=== PATIENT | female | born 1945 | race Caucasian/White ===

== ENCOUNTER 2016-06-09 15:19 | Emergency (ER) | payer MEDICARE ==
[2016-06-09] MEDS ORDERED: Morphine INJ* 10 MG/ML 1 ML CARPUJECT IM ONE (16:25)
[2016-06-09] MEDS ORDERED: Ondansetron ODT TAB* 4 MG PO ONE (17:03)
--- NOTE | 2016-06-09 17:03 | RAD ---
INDICATION: Traumatic fracture right wrist COMPARISON: None TECHNIQUE: AP, lateral, and oblique views were obtained. FINDINGS: There is a comminuted, impacted and angulated fracture of the distal radius. There is also fracture from the ulnar styloid. The soft tissue swelling with deformity. IMPRESSION: INTRA-ARTICULAR DISTAL RADIAL FRACTURE WITH ANGULATION. ULNAR SOLID FRACTURE.
[2016-06-09] MEDS ORDERED: Ondansetron INJ* 2 MG/ML VIAL ONE (17:04)
--- NOTE | 2016-06-09 18:16 | RAD ---
INDICATION: Closed [id number]. Traumatic fracture right wrist COMPARISON: Right wrist same date TECHNIQUE: 2 views were obtained. FINDINGS: There is closed reduction with improved positioning and alignment of the distal radial fracture fragments. An ulnar styloid fracture is again noted. IMPRESSION: INTERVAL CLOSED REDUCTION.
[2016-06-09 18:43] VITALS: BP 132/72
--- NOTE | 2016-06-09 21:30 | ED ---
Scarlett Paniagua Adam, scribed for Eladio Sofia MD on 06/09/16 at 1644 . Upper Extremity Pain - HPI Summary HPI Summary: A 71 y/o female presents to the ED c/o right forearm/wrist pain after falling from a height of 3 feet while standing on a couch. She denies any numbness. PMHx and FHx are negative. - History of Current Complaint Chief Complaint: EDExtremityUpper Stated Complaint: FALL/WRIST AND ARM INJURY Time Seen by Provider: 06/09/16 16:25 Hx Obtained From: Patient Mechanism Of Injury: Fall From Height Of: - 3 feet. Standing on couch. Onset/Duration: Started Hours Ago - 15:30 Timing: Constant Severity Initially: Moderate Severity Currently: Moderate Pain Location: Forearm - Right, Wrist - Right Aggravating Factor(s): Movement Alleviating Factor(s): Nothing Associated Signs & Symptoms: Positive: Swelling. Negative: Numbness/Tingling - Allergies/Home Medications Allergies/Adverse Reactions: Allergies Allergy/AdvReac Type Severity Reaction Status Date / Time Meperidine [From Demerol HCl] Allergy Unknown Unknown Verified 05/09/13 11:24 Reaction Details PMH/Surg Hx/FS Hx/Imm Hx Endocrine/Hematology History: Denies: Hx Diabetes Cardiovascular History: Denies: Hx Hypertension Musculoskeletal History: Denies: Hx Osteoporosis - Cancer History Hx Chemotherapy: No Hx Radiation Therapy: No Infectious Disease History: No Infectious Disease History: Denies: Traveled Outside the [place] in Last 30 Days - Family History Known Family History: Negative: Cardiac Disease, Hypertension, Diabetes - Social History Alcohol Use: Rare Substance Use Type: Reports: None Smoking Status (MU): Never Smoked Tobacco Review of Systems Constitutional: Negative Negative: Fever Eyes: Negative ENT: Negative Cardiovascular: Negative Respiratory: Negative Gastrointestinal: Negative Genitourinary: Negative Positive: Arthralgia - Right wrist and distal forearm, Decreased ROM - D/T pain , Edema - Right wrist and forearm Skin: Negative Neurological: Negative Psychological: Normal All Other Systems Reviewed And Are Negative: Yes Physical Exam - Summary Physical Exam Summary: General: Comfortable, pleasant, alert HEENT: Moist mucosa Neck: soft, supple, no adenopathy, no edema, no c-spine tenderness Heart: S1, S2, RRR, no murmurs, rubs, or gallops Lungs: Clear to auscultation, breathing comfortable, no wheezes or rales Abdominal: Soft, flat, nontender Extremities: No edema, no calf tenderness, Motions and strength of the right hand intact but limited due to pain, sensation of hand intact, obvious deformity of right distal radius Neuro: Alert and oriented x 3 Psych: Logical, coherent Vital Signs On Initial Exam: Initial Vitals Temp Pulse Resp BP Pulse Ox 98.8 F 87 20 154/101 98 06/09/16 15:25 06/09/16 15:25 06/09/16 15:25 06/09/16 15:25 06/09/16 15:25 - Lety Coma Scale Coma Scale Total: 15 Procedures - Procedure Summary Procedure Summary: Hematoma block of the right distal radius. Sterile technique used. 6 cc Marcaine. Betadine prep x 3. Radius fracture reduction and splintin-10 pounds traction placed for 10 minutes. Distal radius reduced. Orthoglass sugar tong splint placed. Diagnostics - Vital Signs Vital Signs Temp Pulse Resp BP Pulse Ox 06/09/16 15:25 98.8 F 87 20 154/101 98 - Laboratory Lab Statement: Any lab studies that have been ordered have been reviewed, and results considered in the medical decision making process. - Radiology Right wrist xray Xray Interpretation: Positive (See Comments) - INTRA-ARTICULAR DISTAL RADIAL FRACTURE WITH ANGULATION. ULNAR SOLID FRACTURE. Radiology Interpretation Completed By: Radiologist Right wrist xray 2 Xray Interpretation: Positive (See Comments) - Interval closed redution Radiology Interpretation Completed By: Radiologist Course/Dx - Course Assessment/Plan: Simple mechanical fall. Distal radius fx with signifcant impaction and angulation. Successfully reduced with hematoma block and she is much improved. Pain is improved. Splinted. She will return for increaseing pain or signs of poor perfusion. Otherwise f/u with ortho for additional treatment. Warnings given as far as sedative properties and how to avoid compliations. - Diagnoses Differential Diagnosis/HQI/PQRI: Positive: Contusion, Fracture (Open), Hematoma , Osteomyelitis, Septic Arthritis, Strain, Sprain Provider Diagnoses: Distal radius fracture, right Discharge - Discharge Plan Condition: Good Disposition: HOME Prescriptions: HYDROcodone/ACETAMIN 5-325 MG* [Mason 5-325 TAB*] 1 tab PO Q6H PRN #20 tab MDD 4 PRN Reason: Pain Patient Education Materials: Wrist Fracture in Adults (ED) Referrals: Sherif Tyson MD [Medical Doctor] - The documentation as recorded by the Scarlett adler Adam accurately reflects the service I personally performed and the decisions made by me, Eladio Sofia MD.
== END 2016-06-09 18:41 | disposition home or self-care (01) ==
LOC: ED 15:19
DX: S52.501A Unspecified fracture of the lower end of right radius, initial encounter for closed fracture (principal); W08.XXXA Fall from other furniture, initial encounter; Y92.9 Unspecified place or not applicable
CPT/HCPCS: 25605; 96372; 99282; A9270-GY; J2270; J2405

== ENCOUNTER → 2016-06-16 | Day surgery (SDC) | payer MEDICARE ==
--- NOTE | 2016-06-11 12:43 | HP ---
PREOPERATIVE HISTORY AND PHYSICAL: DATE OF ADMISSION/SURGERY: 06/16/16 [facility] DATE OF OFFICE VISIT/ENCOUNTER: 06/10/16 ATTENDING SURGEON: Yessica Morrison MD PROCEDURE: Open reduction internal fixation, right wrist. CHIEF COMPLAINT: Right wrist pain after a fall. HISTORY OF PRESENT ILLNESS: This is a 71-year-old female who sustained injury to her right wrist on 06/09/16. She was attempting to clean snow off her dog's house outside and she was standing upon the edge of a couch that was out there, to reach the roof, she fell onto an outstretched right hand, suffering a fracture of her distal radius; it is comminuted and intraarticular. She was seen at [facility] and the fracture was reduced. She was referred to Dr. Morrison for further evaluation and treatment. Her arm has been maintained in a sugar-tong splint. She is using hydrocodone for pain. She denies any numbness or tingling. After evaluation by Dr. Morrison and review of postreduction x-rays, Dr. Morrison is recommending an open reduction internal fixation of the right wrist. The patient has consented to proceed. PAST MEDICAL HISTORY: 1. Hypertension. 2. Asthma. 3. Depression/anxiety. PAST SURGICAL HISTORY: 1. Bilateral carpal tunnel releases. 2. Hysterectomy. 3. Bilateral shoulder surgery. 4. Gastric bypass. 5. Appendectomy. CURRENT MEDICATIONS: 1. Metoprolol 50 mg daily. 2. Lexapro 10 mg daily. 3. ProAir HFA inhaler p.r.n. ALLERGIES: DEMEROL. FAMILY MEDICAL HISTORY: Diabetes, heart disease, non-Hodgkin's lymphoma. SOCIAL HISTORY: The patient is retired. She denies tobacco and recreational drug use. She does admit to alcohol intake on occasion. REVIEW OF SYSTEMS: General: Negative for fevers, chills, or night sweats. No known anesthesia problems. HEENT: Negative for headache, lightheadedness, or syncopal episodes. Integumentary: Negative for abrasions, lesions, or open wounds. Cardiothoracic: Positive for hypertension, negative for chest pain, palpitations, or edema. Pulmonary: Positive for asthma. Negative for shortness of breath with exertion, chronic cough, or COPD. GI: Negative for nausea, vomiting, diarrhea, constipation, or GERD. : Negative for nocturia, urinary frequency, urgency, history of UTIs, or kidney problems. Musculoskeletal: Positive for current complaint. Negative for chronic or intermittent back pain or history of fractures. Neurological: Positive for depression/anxiety. Negative for paresthesias, numbness, history of seizure, stroke, or epilepsy. Endocrine: Negative for diabetes or thyroid issues. Hematologic: Negative for easy bruising, anemia, or excessive bleeding. No history of DVT. Infectious Disease: Negative for history of MRSA, hepatitis C , or HIV. PHYSICAL EXAMINATION GENERAL: Well-developed , well-nourished, 71-year-old female in no acute distress. VITAL SIGNS: Height 5 feet 1 inch, weight 151 pounds, pulse 78, blood pressure 124/74. HEENT: Normocephalic, atraumatic. Pupils are equal, round, and reactive to light and accommodation. Extraocular movements are intact. NECK: Supple. No palpable lymph nodes. Throat is clear. PULMONARY: Lungs are clear to auscultation bilaterally. No wheezes, rales, or rhonchi. CARDIOTHORACIC: Regular rate and rhythm. S1 and S2. No murmurs, rubs, or gallops. No edema. ABDOMEN: Positive bowel sounds, soft, and nontender. NEUROLOGICAL: Alert and oriented x3. Cranial nerves II through XII are intact. Sensation is intact to light touch. MUSCULOSKELETAL: On exam of the right upper extremity/wrist, the patient is maintained in a splint. There is [id number] swelling in the fingers. She has good motion in the fingers and intact neurovascular function to the right upper extremity. DIAGNOSTIC STUDIES: Imaging studies: X-rays, AP, lateral, and oblique, of the right wrist, pre and post reduction, show comminuted intraarticular fracture with persistent apex volar angulation. ASSESSMENT: Right distal radius fracture, which is comminuted intraarticular and displaced. PLAN: The patient is scheduled for an open reduction internal fixation of the right distal radius with Dr. Morrison on 06/16/16. She will return to the office 10 to 14 days postop for followup and suture removal. Prescription for Badger was e-scribed to the patient's pharmacy for postoperative pain management. DANIEL ANDERSON [id number]/[facility] #: [id number] [facility]ITAL[facility]
[~2016-06-16] MED LIST: Buffered Lidocaine 1% SYR 3ML* 3 ML/SYR SYRINGE INTRADERM ONE; Buffered Lidocaine 1% SYR 3ML* 3 ML/SYR SYRINGE ONE; Bupivacaine 0.5% SDV PF* 30 ML VIAL ONE; DiMENhydriNATE IV* 50 MG/ML VIAL IV PUSH PRN; Ketorolac INJ* 30 MG/ML 1 ML VIAL IV PRN; Levalbuterol HFA INHALER* 1 PUFF MDI ONE; Lidocaine 2% PF * 5 ML VIAL ONE; Midazolam* 1 MG/ML 2 ML VIAL (2 MG) ONE; Propofol* 10 MG/ML 20 ML BTL IV PUSH ONE; ROPIVACAINE 5 MG/ML 30 ML BTL (0.5%) ONE; Sodium Citrate/Citric Acid* 15 ML UDC ONE; Sodium Citrate/Citric Acid* 15 ML UDC PO ONE; ceFAZolin 2 GM PREMIX (*) 2 GM/50 ML BAG IVPB ONE; fentaNYL* 50 MCG/ML 2 ML VIAL (100 MCG VIAL) IV PRN; fentaNYL* 50 MCG/ML 2 ML VIAL (100 MCG VIAL) ONE
[2016-06-16 16:25] VITALS: BP 139/66
--- NOTE | 2016-06-17 02:33 | OP ---
DATE OF OPERATION: 06/16/16 [facility] DATE OF : 49 SURGEON: Yessica Morrison MD COMPREHENSIVE ADVISOR: DANIEL Truong ANESTHESIOLOGIST: Edgar Cook DO ANESTHESIA: General and block. PRE-OP DIAGNOSIS: Distal radius fracture, comminuted and intraarticular on the right. POST-OP DIAGNOSIS: Distal radius fracture, comminuted and intraarticular on the right. OPERATIVE PROCEDURE: Open reduction and internal fixation of the right distal radius. ESTIMATED BLOOD LOSS: Zero. TOURNIQUET TIME: Half an hour. INDICATIONS: Uzma is a 71-year-old female who fell and injured her right wrist. She has a comminuted displaced intraarticular fracture of the radius. She presents for ORIF and there was also a small ulnar styloid fracture. DESCRIPTION OF PROCEDURE: The patient was brought to the operating room, given a block and general anesthetic. She was placed in the supine position on the operating table with a tourniquet around her right upper arm, The skin of her right upper extremity was prepped and draped in the usual sterile fashion. A longitudinal incision was made over the FCR tendon. We dissected sharply through the superficial and deep portion of the FCR tendon sheath. The FCR and FPL tendon and muscle were then retracted. The pronator quadratus was incised and subperiosteally dissected off of the distal radius. The fracture was reduced and the distal two intraarticular fracture fragments were each secured with two separate screws in the distal aspect of the plate and then the plate secured to the shaft with 3 proximal screws. The position of the hardware and fracture fragment were checked on the C-arm in the AP and lateral views and found to be satisfactory. The wound was irrigated. The pronator quadratus was repaired over the plate and the FCR tendon sheath was repaired with 2-0 Polysorb suture and skin edges reapproximated with 4-0 nylon suture. The wound was dressed with Xeroform, 4x4, Webril and a volar splint. The patient tolerated the procedure well and was brought to the recovery in good condition. [id number]/[facility] #: [id number] [facility]
--- NOTE | 2016-06-17 11:47 | RAD ---
INDICATION: Right wrist fracture, trauma COMPARISONS: June 09, 2016 TECHNIQUE: Fluoroscopy was provided for a surgical procedure. Total fluoroscopy time is: 31 seconds FINDINGS: Spot images of the straight internal fixation of the distal radius. There are fractures of the distal radius and ulna. IMPRESSION: FLUOROSCOPY WAS PROVIDED FOR A SURGICAL PROCEDURE CPT II Codes: 6045F
== END | disposition home or self-care (01) ==
LOC: OREAST 10:45
PROVIDERS: ATTEND Orthopaedic Surgery
DX: S52.571A Other intraarticular fracture of lower end of right radius, initial encounter for closed fracture (principal); I10 Essential (primary) hypertension; J45.909 Unspecified asthma, uncomplicated; W08.XXXA Fall from other furniture, initial encounter; Y92.096 Garden or yard of other non-institutional residence as the place of occurrence of the external cause
CPT/HCPCS: 76000; A9270-GY; C1713; C1776; J0690; J2250; J2704; J2795; J3010

== ENCOUNTER 2016-11-04 06:28 | Day surgery (SDC) | payer MEDICARE ==
[~2016-11-04 06:28] MED LIST changes: +Acetaminophen TAB* 325 MG PO PRN; +Buffered Lidocaine 0.9% SYRIN* 5 ML/SYR SYRINGE INTRADERM ONE; -Buffered Lidocaine 1% SYR 3ML* 3 ML/SYR SYRINGE INTRADERM ONE; -Buffered Lidocaine 1% SYR 3ML* 3 ML/SYR SYRINGE ONE; -Bupivacaine 0.5% SDV PF* 30 ML VIAL ONE; -DiMENhydriNATE IV* 50 MG/ML VIAL IV PUSH PRN; -Ketorolac INJ* 30 MG/ML 1 ML VIAL IV PRN; -Levalbuterol HFA INHALER* 1 PUFF MDI ONE; -Lidocaine 2% PF * 5 ML VIAL ONE; -Midazolam* 1 MG/ML 2 ML VIAL (2 MG) ONE; -Propofol* 10 MG/ML 20 ML BTL IV PUSH ONE; -ROPIVACAINE 5 MG/ML 30 ML BTL (0.5%) ONE; -Sodium Citrate/Citric Acid* 15 ML UDC ONE; -Sodium Citrate/Citric Acid* 15 ML UDC PO ONE; -ceFAZolin 2 GM PREMIX (*) 2 GM/50 ML BAG IVPB ONE; -fentaNYL* 50 MCG/ML 2 ML VIAL (100 MCG VIAL) IV PRN; -fentaNYL* 50 MCG/ML 2 ML VIAL (100 MCG VIAL) ONE
[2016-11-04] MEDS ORDERED: fentaNYL* 50 MCG/ML 2 ML VIAL (100 MCG VIAL) ONE (07:03)
[2016-11-04] MEDS ORDERED: Midazolam* 1 MG/ML 2 ML VIAL (2 MG) ONE ×2 (07:04→07:45)
[2016-11-04] MEDS ORDERED: Propofol* 10 MG/ML 20 ML BTL IV PUSH ONE (08:00)
[2016-11-04 08:24] VITALS: BP 118/58
--- NOTE | 2016-11-04 10:02 | OP ---
DATE OF OPERATION: 11/04/16 [facility] DATE OF : 49 SURGEON: Faustino Leiva M.D. PREOPERATIVE DIAGNOSIS: Cataract, left eye. POSTOPERATIVE DIAGNOSIS: Cataract, left eye. OPERATIVE PROCEDURE: Phacoemulsification left eye with IOL. DESCRIPTION OF PROCEDURE: The patient was brought to the operating room after being given 1/2% Alcaine with epinephrine drops in the preoperative area. The eye was prepped and draped in the usual sterile fashion. Sterile drape and eyelid speculum were placed. Again, topical 1/2% Alcaine with epinephrine was given. A paracentesis incision was made at the 3 o'clock position with the No.75 blade. Clear cornea incision 2.2 x 2.2-mm was created at the 6 o'clock position starting at the anterior limbus using the 2.2-mm keratome. The anterior chamber was irrigated with 0.4 mL of 1% non-preservative intracameral lidocaine and filled with DisCoVisc. A capsulorrhexis was completed using the cystotome and the Utrata forceps. Hydrodissection was performed with balanced salt solution. The lens nucleus was removed with the Phacoemulsification handpiece without incident. Cortex was removed with the irrigation-aspiration handpiece. The capsular bag was re-inflated using DisCoVisc and an SN60WF 22.5 implant was inserted with the shooter. The irrigation-aspiration handpiece was used to remove all residual DisCoVisc. The eye was refilled with balanced salt solution and the wound checked and found to be watertight. Topical Maxitrol drops were given. [id number]/[facility] #: [id number] MTDD
[2016-11-04] MEDS ORDERED: Neomycin/Polymy/Dex OPTH.SUSP* MAXITROL 0.1% 5 ML ONE (13:47)
[2016-11-04] MEDS ORDERED: Povidone Iodine 5% OPTH* 30 ML BTL ONE (13:47)
[2016-11-04] MEDS ORDERED: Buffered Lidocaine 0.9% SYRIN* 5 ML/SYR SYRINGE ONE (13:47)
[2016-11-04] MEDS ORDERED: Phenylephrine 2.5% OPTH.SOL* 2 ML BTL ONE (13:47)
[2016-11-04] MEDS ORDERED: Lidocaine 1% MPF wEPI 200,000* 30 ML SDV ONE (13:47)
[2016-11-04] MEDS ORDERED: acetaZOLAMIDE TAB* 250 MG ONE (13:47)
[2016-11-04] MEDS ORDERED: Proparacaine 0.5% OPHTH.SOL* 15 ML BTL ONE (13:47)
[2016-11-04] MEDS ORDERED: Lidocaine 1% MPF* 2 ML VIAL ONE (13:47)
[2016-11-04] MEDS ORDERED: Cyclopentolate 1% OPTH.SOL* 2 ML BTL ONE (13:47)
[2016-11-04] MEDS ORDERED: Lidocaine 2% EPI 1:200000 MPF* 20 ML VIAL ONE (13:47)
[2016-11-04] MEDS ORDERED: Flurbiprofen 0.03% OPTH.SOL* 2.5 ML BTL ONE (13:47)
== END 2016-11-04 08:21 | disposition home or self-care (01) ==
LOC: OREAST 06:28
PROVIDERS: ATTEND Specialist
PROC: 08RK3JZ Replacement of Left Lens with Synthetic Substitute, Percutaneous Approach (ICD-10-PCS; principal; 2016-11-04 07:30)
DX: H25.812 Combined forms of age-related cataract, left eye (principal); E11.9 Type 2 diabetes mellitus without complications; H10.45 Other chronic allergic conjunctivitis
CPT/HCPCS: A9270-GY; J2001; J2250; J2704; J3010; V2632

== ENCOUNTER 2016-11-11 09:00 | Day surgery (SDC) | payer MEDICARE ==
[2016-11-11] MEDS ORDERED: Midazolam* 1 MG/ML 5 ML VIAL (5 MG) ONE (12:12)
[2016-11-11] MEDS ORDERED: fentaNYL* 50 MCG/ML 2 ML VIAL (100 MCG VIAL) ONE (12:12)
[2016-11-11] MEDS ORDERED: Proparacaine 0.5% OPHTH.SOL* 15 ML BTL ONE ×2 (12:32→13:57)
[2016-11-11 12:57] VITALS: BP 116/60
[2016-11-11] MEDS ORDERED: Buffered Lidocaine 0.9% SYRIN* 5 ML/SYR SYRINGE ONE (13:57)
[2016-11-11] MEDS ORDERED: Flurbiprofen 0.03% OPTH.SOL* 2.5 ML BTL ONE (13:57)
[2016-11-11] MEDS ORDERED: Povidone Iodine 5% OPTH* 30 ML BTL ONE (13:57)
[2016-11-11] MEDS ORDERED: Neomycin/Polymy/Dex OPTH.SUSP* MAXITROL 0.1% 5 ML ONE (13:57)
[2016-11-11] MEDS ORDERED: Phenylephrine 2.5% OPTH.SOL* 2 ML BTL ONE (13:57)
[2016-11-11] MEDS ORDERED: Cyclopentolate 1% OPTH.SOL* 2 ML BTL ONE (13:57)
[2016-11-11] MEDS ORDERED: acetaZOLAMIDE TAB* 250 MG ONE (13:57)
[2016-11-11] MEDS ORDERED: Lidocaine 1% MPF* 2 ML VIAL ONE (13:57)
[2016-11-11] MEDS ORDERED: Lidocaine 1% MPF wEPI 200,000* 30 ML SDV ONE (13:57)
--- NOTE | 2016-11-12 08:40 | OP ---
DATE OF OPERATION: 11/11/16 - [facility] DATE OF : 49 SURGEON: Faustino Leiva M.D. PREOPERATIVE DIAGNOSIS: Cataract, right eye. POSTOPERATIVE DIAGNOSIS: Cataract, right eye. OPERATIVE PROCEDURE: Phacoemulsification, right eye with IOL. DESCRIPTION OF PROCEDURE: The patient was brought to the operating room after being given 1/2% Alcaine with epinephrine drops in the preoperative area. The eye was prepped and draped in the usual sterile fashion. Sterile drape and eyelid speculum were placed. Again, topical 1/2% Alcaine with epinephrine was given. A paracentesis incision was made at the 9 o'clock position with the No.75 blade. Clear cornea incision 2.2 x 2.2-mm was created at the 12 o'clock position starting at the anterior limbus using the 2.2-mm keratome. The anterior chamber was irrigated with 0.4 mL of 1% non-preservative intracameral lidocaine and filled with DisCoVisc. A capsulorrhexis was completed using the cystotome and the Utrata forceps. Hydrodissection was performed with balanced salt solution. The lens nucleus was removed with the Phacoemulsification handpiece without incident. Cortex was removed with the irrigation-aspiration handpiece. The capsular bag was re-inflated using DisCoVisc and an SN60WF 22.5 implant was inserted with the shooter. The irrigation-aspiration handpiece was used to remove all residual DisCoVisc. The eye was refilled with balanced salt solution and the wound checked and found to be watertight. Topical Maxitrol drops were given. [id number]/[facility] #: [id number] MTDD
== END 2016-11-11 13:03 | disposition home or self-care (01) ==
LOC: OREAST 09:00
PROVIDERS: ATTEND Specialist
DX: H25.811 Combined forms of age-related cataract, right eye (principal); E11.9 Type 2 diabetes mellitus without complications; H10.45 Other chronic allergic conjunctivitis; I10 Essential (primary) hypertension
CPT/HCPCS: A9270-GY; J2001; J2250; J3010; V2632

== ENCOUNTER 2019-06-24 12:12 | Emergency (ER) | payer MEDICARE ==
[2019-06-24 14:23] LABS: ABS Basophils 0.1 10^3/ul (0-0.2); ABS Lymphocytes 2.3 10^3/ul (1.0-4.8); ABS Neutrophils 11.5 10^3/ul (1.5-7.7); Eosinophil % 0.2 %; Hematocrit 44 % (35-47); Lymphocyte % 15.4 %; Mean Corpuscular HGB Conc 35 g/dL (31-36); Mean Corpuscular Hemoglobin 31 pg (27-31); Mean Corpuscular Volume 91 fL (80-97); Nucleated Red Blood Cells % 0.1; Platelet Count 317 10^3/uL (150-450); Red Blood Count 4.79 10^6 /uL (3.70-4.87); Red Cell Distribution Width 13 % (10-15); White Blood Count 14.9 10^3/uL (3.5-10.8)
--- NOTE | 2019-06-24 14:23 | ED ---
GI/ HPI - HPI Summary HPI Summary: This patient is a 74 year old F presenting to [facility] accompanied by female friend with a chief complaint of bloody stools since yesterday 06/23/19. Symptoms aggravated by nothing. Symptoms alleviated by nothing. Patient reports pain every time she has to go bathroom, feels like period, nauseous, cramping in abdominal. Reports yesterday was here in ED for disimpaction but since then has had grossly bloody stools (pure blood). Pt denies use of blood thinners. Medications reviewed. Allergies noted - History of Current Complaint Chief Complaint: EDGIBleed Time Seen by Provider: 06/24/19 14:06 Stated Complaint: RECTAL BLEEDING PER PT Hx Obtained From: Patient Onset/Duration: Started Hours Ago, Still Present Timing: Constant, Lasting Hours Pain Intensity: 0 Associated Signs and Symptoms: Positive: Nausea, Other: - pain every time going to bathroom, abdominal cramping Aggravating Factor(s): Nothing Alleviating Factor(s): Nothing - Allergy/Home Medications Allergies/Adverse Reactions: Allergies Allergy/AdvReac Type Severity Reaction Status Date / Time meperidine Allergy hot,itchy, Verified 06/24/19 12:17 nausea/vomiting PMH/Surg Hx/FS Hx/Imm Hx Endocrine/Hematology History: Denies: Hx Diabetes Cardiovascular History: Reports: Hx Hypertension - ON DAILY MEDS, STATES WELL CONTROLLED Denies: Other Cardiovascular Problems/Disorders Respiratory History: Reports: Hx Asthma - HAS INHALER PRN USE Denies: Other Respiratory Problems/Disorders GI History: Denies: Other GI Disorders Musculoskeletal History: Denies: Hx Osteoporosis, Other Musculoskeletal History Sensory History: Reports: Hx Cataracts - chance, Hx Contacts or Glasses - GLASSES Denies: Hx Hearing Aid Opthamlomology History: Reports: Hx Cataracts - chance, Hx Contacts or Glasses - GLASSES Neurological History: Denies: Other Neuro Impairments/Disorders Psychiatric History: Reports: Hx Anxiety - ON MEDS BID - Cancer History Hx Chemotherapy: No Hx Radiation Therapy: No - Surgical History Surgery Procedure, Year, and Place: 1993 HYSTERECTOMY/APPENDECTOMY [facility]. 2003 BILATERAL CARPAL TUNNEL RELEASE [facility]. 2005 & 2008 BILATERAL SHOULDER REPAIRS [facility]. 2007 GASTRIC BYPASS [facility]. CHOLECYSTECTOMY [facility] Hx Anesthesia Reactions: No Infectious Disease History: No Infectious Disease History: Denies: Traveled Outside the [place] in Last 30 Days - Family History Known Family History: Negative: Cardiac Disease, Hypertension, Diabetes - Social History Alcohol Use: Rare Alcohol Amount: 2-3 DRINKS/MONTH Substance Use Type: Reports: None Smoking Status (MU): Never Smoked Tobacco Have You Smoked in the Last Year: No Review of Systems Positive: Abdominal Pain - abdominal cramping, Nausea Positive: other - bloody stools, pain when going to bathroom All Other Systems Reviewed And Are Negative: Yes Physical Exam - Summary Physical Exam Summary: Constitutional: Well-developed, Well-nourished, Alert. (-) Distressed Skin: Warm, Dry HENT: Normocephalic; Atraumatic Eyes: Conjunctiva normal Neck: Musculoskeletal ROM normal neck. (-) JVD, (-) Stridor, (-) Tracheal deviation Cardio: Rhythm regular, rate normal, Heart sounds normal; Intact distal pulses; Radial pulses are 2+ and symmetric. (-) Murmur Pulmonary/Chest wall: Effort normal. (-) Respiratory distress, (-) Wheezes, (-) Rales Abd: Soft, No abdominal tenderness, (-) Distension, (-) Guarding, (-) Rebound rectal exam: no fissure, hemorrhoid or tenderness, shows brown stool Musculoskeletal: (-) Edema Lymph: (-) Cervical adenopathy Neuro: Alert, Oriented x3 Psych: Mood and affect Normal Triage Information Reviewed: Yes Vital Signs On Initial Exam: Initial Vitals Temp Pulse Resp BP Pulse Ox 98.6 F 88 19 148/126 96 06/24/19 12:14 06/24/19 12:14 06/24/19 12:14 06/24/19 12:14 06/24/19 12:14 Vital Signs Reviewed: Yes Procedures - Sedation Patient Received Moderate/Deep Sedation with Procedure: No Diagnostics - Vital Signs Vital Signs Temp Pulse Resp BP Pulse Ox 06/24/19 12:14 98.6 F 88 19 148/126 96 - Laboratory Result Diagrams: 06/24/19 14:18 06/24/19 14:18 Lab Statement: Any lab studies that have been ordered have been reviewed, and results considered in the medical decision making process. - CT Abdomen/Pelvis CT CT Interpretation Completed By: Radiologist Summary of CT Findings: Per radiologist,. FINDINGS MOST CONSISTENT WITH COLITIS AND PROCTITIS WITH CHANGES MOST. PROMINENT IN THE RECTOSIGMOID COLON. IN ADDITION THERE ARE BUBBLES OF AIR IN THE PERINEUM ANTERIOR TO THE ANUS. THESE WERE PRESENT ON THE PRIOR STUDY AND THEREFORE LIKELY. INCIDENTAL ALTHOUGH A FISTULA CANNOT BE EXCLUDED. ED physician has reviewed this imaging report. GIGU Course/Dx - Course Course Of Treatment: Patient is here with rectal bleeding after being disimpacted yesterday. Patient has minimal abdominal cramping which is same from yesterday. Patient had a rectal exam which showed brown stool which was guaiac negative. However, given patient's subjective symptoms a repeat CT scan was performed evaluate for perforation. Patient's CT scan was unchanged from yesterday's. Patient was hematite stable with no change in her hemoglobin. Patient was discharged with outpatient follow-up - Diagnoses Provider Diagnoses: Rectal bleeding, Abdominal pain Discharge ED - Sign-Out/Discharge Documenting (check all that apply): Patient Departure - discharge - Discharge Plan Condition: Stable Disposition: HOME Patient Education Materials: Rectal Bleeding (ED) Referrals: Reji Garcia MD [Primary Care Provider] - Additional Instructions: Please call your primary care doctor on Wednesday for an appointment Please return if you feel like you're going to pass out, have severe abdominal pain, or any other concerning symptoms - Billing Disposition and Condition Condition: STABLE Disposition: Home - Attestation Statements Document Initiated by Scribe: Yes Documenting Scribe: Kristen Dumont Provider For Whom Bull is Documenting (Include Credential): Dr. Justice Ty MD Scribe Attestation: Kristen Paniagua, scribed for Dr. Justice Ty MD on 06/27/19 at 0743. Scribe Documentation Reviewed: Yes Provider Attestation: The documentation as recorded by the Kristen adler accurately reflects the service I personally performed and the decisions made by me, Dr. Justice Ty MD Status of Scribadithya Document: Viewed
[2019-06-24 14:41] LABS: Albumin 4.9 g/dL (3.2-5.2); Albumin/Globulin Ratio 1.9 (1-3); BUN/Creatinine Ratio 18.3 (8-20); Calcium 9.8 mg/dL (8.6-10.3); EGFR African American 97.9 (>60); EGFR Non-African American 80.9 (>60); Globulin 2.6 g/dL (2-4); INR 1.19 (0.82-1.09); Potassium 4.1 mmol/L (3.5-5.0); Total Bilirubin 0.6 mg/dL (0.2-1.0); Total Protein 7.5 g/dL (6.4-8.9)
[2019-06-24] MEDS ORDERED: Ondansetron INJ* 2 MG/ML VIAL IV ONE (15:42)
[2019-06-24] MEDS ORDERED: NS 0.9% 1000 ML** 1,000 ML IV ONE (15:42)
[2019-06-24] MEDS ORDERED: Morphine 4 MG/ML VIAL (1 ml) 4 MG/ML VIAL IV ONE (15:42)
[2019-06-24] MEDS ORDERED: Iohexol 300* (CONTRAST) 10 ML SDV IV ONE (16:54)
[2019-06-24 18:43] VITALS: BP 132/80
== END 2019-06-24 18:42 | disposition home or self-care (01) ==
LOC: ED 12:12
DX: K62.5 Hemorrhage of anus and rectum (principal); R10.9 Unspecified abdominal pain; I10 Essential (primary) hypertension; J45.909 Unspecified asthma, uncomplicated; F41.9 Anxiety disorder, unspecified; Z90.710 Acquired absence of both cervix and uterus; Z90.89 Acquired absence of other organs; Z98.84 Bariatric surgery status; Z90.49 Acquired absence of other specified parts of digestive tract; Z79.899 Other long term (current) drug therapy; Z88.5 Allergy status to narcotic agent
CPT/HCPCS: 36415; 74177; 80053; 82272; 83605; 85025; 85610; 96361; 96374; 96375; 99282; J2270; J2405; Q9967

== ENCOUNTER 2021-01-30 08:20 | Observation (INO) ==
[2021-01-30] MEDS ORDERED: Buffered Lidocaine 1% SYRIN 1 ml INTRADERM ONE (08:50)
[2021-01-30] MEDS ORDERED: ceFAZolin 2 GM in NS PREMIX 2 GM/100 ML BAG IVPB ONE (08:50)
[2021-01-30] MEDS ORDERED: Ketamine HCL 50 mg/ml 10 ml VIAL (500 MG) ONE (09:26)
[2021-01-30] MEDS ORDERED: Propofol 10 MG/ML 20 ML BTL ONE (09:26)
[2021-01-30] MEDS ORDERED: Lidocaine 2% PF 5 ML VIAL ONE (09:26)
[2021-01-30] MEDS ORDERED: Ondansetron 4 mg VIAL 2 MG/ML 2 ml VIAL IV PRN (10:44)
[2021-01-30] MEDS ORDERED: HYDROcodone/ACETAMIN 5/325 mg TAB PO PRN (10:44)
[2021-01-30] MEDS ORDERED: fentaNYL 100 mcg/2 ml 50 MCG/ML VIAL IV PRN (10:44)
[2021-01-30] MEDS ORDERED: Metoclopramide 5 MG/ML VIAL (10 mg) IV PRN (10:44)
[2021-01-30] MEDS ORDERED: HYDROmorphone 1 MG/1 ML SYRINGE IV PRN (10:44)
[2021-01-30] MEDS ORDERED: Naloxone 0.4 mg VIAL 0.4 mg/ml 1 ml VIAL IV PRN (10:44)
[2021-01-30] MEDS ORDERED: diPHENhydraMINE IV 50 MG/ML 1 ml VIAL (BENADRYL) IV PRN ×2 (10:44→13:43)
[2021-01-30] MEDS ORDERED: Midazolam 2 mg/2 ml VIAL 1 mg/ml 2 ml VIAL (2 mg) ONE ×2 (10:46→12:14)
[2021-01-30] MEDS ORDERED: fentaNYL 100 mcg/2 ml 50 MCG/ML VIAL ONE (10:46)
[2021-01-30] MEDS ORDERED: Dexamethasone IV 4 MG/ML VIAL 1 ml VIAL ONE (10:46)
[2021-01-30] MEDS ORDERED: ROPIVACAINE 5 MG/ML 30 ML BTL (0.5%) ONE ×2 (10:47→11:04)
[2021-01-30] MEDS ORDERED: Ropivacaine 5 MG/ML 20 ML VIAL 0.5% (100 MG) ONE (12:06)
[2021-01-30] MEDS ORDERED: EPHEDrine (Pressors) 50 MG/ML VIAL ONE (12:42)
[2021-01-30] MEDS ORDERED: Morphine 2 MG/ML SYRINGE IV PRN (13:43)
[2021-01-30] MEDS ORDERED: Lactulose 30 ml UDC PO PRN (13:43)
[2021-01-30] MEDS ORDERED: Magnesium Hydroxide LIQ 30 ML UDC PO PRN (13:43)
[2021-01-30] MEDS ORDERED: diPHENhydraMINE 25 mg TAB PO PRN (13:43)
[2021-01-30] MEDS ORDERED: Ondansetron 4 mg VIAL 2 MG/ML 2 ml VIAL ONE (13:56)
[2021-01-30] MEDS ORDERED: Albuterol HFA INHALER 8 gm MDI INH PRN (14:02)
[2021-01-30] MEDS: Lactated Ringers 1000 ml BAG 1,000 ML IV SCH (16:30)
[2021-01-30] MEDS: ceFAZolin 1 GM ADVAN 1 GM in NS 0.9% 50 ML 50 ML IVPB SCH (21:53)
[2021-01-30] MEDS: Magnesium Hydroxide LIQ 30 ML UDC PO SCH (21:54)
[2021-01-31] MEDS: Lactated Ringers 1000 ml BAG 1,000 ML IV SCH (04:39)
[2021-01-31] MEDS: ceFAZolin 1 GM ADVAN 1 GM in NS 0.9% 50 ML 50 ML IVPB SCH ×2 (05:51→13:03)
[2021-01-31] MEDS: Magnesium Hydroxide LIQ 30 ML UDC PO SCH (08:19)
[2021-01-31] MEDS ORDERED: Vitamin THERAPEUTIC TAB PO SCH (09:00)
[2021-01-31 11:16] LABS: Hematocrit 33 % (35-47); Mean Platelet Volume 8.3 fL (7.4-10.4); Platelet Count 240 10^3/uL (150-450)
[2021-01-31 11:36] VITALS: BP 131/67
[2021-01-31 11:40] LABS: Calcium 8.8 mg/dL (8.6-10.3); EGFR African American 106.2 (>60); EGFR Non-African American 87.8 (>60); Potassium 3.8 mmol/L (3.5-5.0)
== END 2021-01-31 13:46 | disposition home or self-care (01) ==
LOC: AA 08:20 → INTOOBSV 08:20 → SSU 16:03
PROVIDERS: ADMIT Orthopaedic Surgery Adult Reconstructive Orthopaedic Surgery; ATTEND Orthopaedic Surgery Adult Reconstructive Orthopaedic Surgery

== ENCOUNTER 2023-11-23 09:41 | Observation (INO) ==
[2023-11-23 10:25] LABS: ABS Lymphocytes 0.6 10^3/uL (1.0-4.8); ABS Monocytes 0.4 10^3/uL (0.0-0.9); ABS Neutrophils 5.8 10^3/uL (1.5-7.6); ABS Nucleated RBC 0.01 10^3/ul; Hematocrit 43.1 % (35-45); Hemoglobin 14.7 g/dL (11.5-14.3); Lymphocyte % 8.2 %; Mean Corpuscular Hemoglobin 31.9 pg (27-33); Mean Corpuscular Hgb Conc 34.2 g/dL (31-36); Mean Corpuscular Volume 93.5 fL (80-97); Mean Platelet Volume 7.6 fL (7.5-11.2); Nucleated Red Blood Cells % 0.1 %/100WBC (0.0-0.8); Platelet Count 189 10^3/uL (150-450); Red Blood Count 4.61 10^6/uL (3.63-4.92); Red Cell Distribution Width 13.6 % (12-17); White Blood Count 6.8 10^3/uL (3.8-11.8)
[2023-11-23 10:34] LABS: INR 1.08 (0.83-1.13)
[2023-11-23 11:09] LABS: Albumin 4.5 g/dL (3.2-5.2); Albumin/Globulin Ratio 1.8 (1-3); Calcium 8.9 mg/dL (8.6-10.3); Creatinine, Serum 0.66 mg/dL (0.51-0.95); Globulin 2.5 g/dL (2-4); Potassium 4.1 mmol/L (3.5-5.0); Total Bilirubin 0.7 mg/dL (0.2-1.0); eGFR CKD-EPI 90.9 (>60)
[2023-11-23 12:01] LABS: High Sensitivity Troponin 1 Hr 6 pg/mL (<15)
[2023-11-23 13:54] LABS: Urine Appearance Clear; Urine Bilirubin Negative (Negative); Urine Blood 2+ (Negative); Urine Color Yellow; Urine Glucose Trace (Negative); Urine Ketones 1+ (Negative); Urine Nitrite Negative (Negative); Urine Protein 1+ (>=30 mg/dL) (Negative); Urine Urobilinogen 1+ (Negative)
[2023-11-23 14:05] LABS: Urine Bacteria Absent /HPF (Absent); Urine Red Blood Cell 3+(>10/hpf) /HPF (0-Trace); Urine Squamous Epithelial Cell Present /HPF (Absent); Urine White Blood Cell 3+(>20/hpf) /HPF (0-Trace)
[2023-11-23] MEDS: Lactated Ringers 1000 ml BAG 1,000 ML IV ONE (14:26)
[2023-11-23] MEDS: cefTRIAXone 1 gm/50 mL D5W 1 GM/50 ML BAG IV ONE (16:07)
[2023-11-23] MEDS: Metoclopramide 5 MG/ML VIAL (10 mg) IV SLOW PU ONE (16:07)
[2023-11-23] MEDS: Dexamethasone IV 4 MG/ML VIAL 1 ml VIAL IV SLOW PU ONE (17:52)
[2023-11-23] MEDS: Droperidol 5 MG/2 ML 2 ML VIAL IV ONE (17:52)
[2023-11-23 18:55] LABS: Magnesium 1.8 mg/dL (1.9-2.7)
[2023-11-23] MEDS: Acetaminophen IV 1 GM/100ML 1,000 MG/100 ML BAG IV ONE (20:14)
[2023-11-23] MEDS: Magnesium Sulfate IV 1GM/100ML 1 GM/100 ML BAG IV ONE (20:46)
[2023-11-23] MEDS: DOXYcycline 100 MG in NS 0.9% 250 ml 250 ML IVPB SCH (21:38)
[2023-11-24 05:32] LABS: ABS Lymphocytes 0.5 10^3/uL (1.0-4.8); ABS Monocytes 0.5 10^3/uL (0.0-0.9); ABS Neutrophils 7.6 10^3/uL (1.5-7.6); ABS Nucleated RBC 0.01 10^3/ul; Hematocrit 38.9 % (35-45); Hemoglobin 13.3 g/dL (11.5-14.3); Lymphocyte % 5.8 %; Mean Corpuscular Hemoglobin 31.8 pg (27-33); Mean Corpuscular Hgb Conc 34.2 g/dL (31-36); Mean Platelet Volume 7.4 fL (7.5-11.2); Nucleated Red Blood Cells % 0.1 %/100WBC (0.0-0.8); Platelet Count 172 10^3/uL (150-450); Red Blood Count 4.18 10^6/uL (3.63-4.92); Red Cell Distribution Width 13.6 % (12-17); White Blood Count 8.7 10^3/uL (3.8-11.8)
[2023-11-24 06:07] LABS: Calcium 8.3 mg/dL (8.6-10.3); Creatinine, Serum 0.57 mg/dL (0.51-0.95); Potassium 4.3 mmol/L (3.5-5.0); eGFR CKD-EPI 94.1 (>60)
[2023-11-24 15:00] VITALS: BP 101/75
[2023-11-24] MEDS ORDERED: cefTRIAXone 1 gm/50 mL D5W 1 GM/50 ML BAG IV SCH ×2 (16:30)
[2023-11-24 16:55] LABS: Magnesium 2.2 mg/dL (1.9-2.7)
[2023-11-24] MEDS ORDERED: DOXYcycline 100 MG in NS 0.9% 250 ml 250 ML IVPB SCH (21:00)
[2023-11-26 21:01] LABS: Anaplasma phagocytophilum Negative (Negative); B. miyamotoi PCR, B Negative (Negative); Babesia divergens/MO-1 Negative (Negative); Babesia ducani Negative (Negative); Ehrlichia chaffeensis Negative (Negative); Ehrlichia ewingii/canis Negative (Negative); Ehrlichia muris eauclairensis Negative (Negative)
== END 2023-11-24 15:05 | disposition home or self-care (01) ==
LOC: EDHOLD 09:41 → ED 09:41 → SUATTDRO 19:07 → MED 11-24 12:30
PROVIDERS: ADMIT Internal Medicine; ATTEND Student in an Organized Health Care Education/Training Program